=== PATIENT | male | born 2000 | race Two or more races ===

== ENCOUNTER 2024-07-24 10:10 | Emergency (ER) | payer OTHER ==
[~2024-07-24] VITALS: Ht 188 cm; Wt 72.6 kg
[2024-07-24] MEDS ORDERED: KETOROLAC TROMETHAMINE 30 MG VIAL IV ONE (11:15)
[2024-07-24] MEDS ORDERED: 0.9 % SODIUM CHLORIDE 1,000 ML IV SCH (11:15)
[2024-07-24] MEDS ORDERED: ONDANSETRON HCL 2 MG/ML VIAL IV ONE (11:15)
[2024-07-24] MEDS ORDERED: TAMSULOSIN HCL 0.4 MG CAP PO ONE ×2 (11:15→11:16)
[2024-07-24] MEDS ORDERED: KETOROLAC TROMETHAMINE 30 MG VIAL ONE (11:16)
[2024-07-24] MEDS ORDERED: ONDANSETRON HCL 2 MG/ML VIAL ONE (11:17)
[2024-07-24 11:50] LABS: BASO % 0.6 % (0.1-1.2); EOS # 0.18 (0.04-0.54); EOS % 2.7 % (0.7-7.0); HEMATOCRIT 40.2 % (40.1-51.0); LYMPH # 1.47 (1.18-3.74); LYMPH % 22.4 % (19.3-53.1); MEAN CORPUSCULAR HEMOGLOBIN 29.9 pg (25.6-32.2); MONO # 0.38 (0.24-0.82); MONO % 5.8 % (4.7-12.5); NEUT # 4.49 (1.56-6.13); NEUT % 68.3 % (34.0-71.1); PLATELET COUNT 221 K/uL (163-369); RED BLOOD COUNT 4.68 M/uL (4.63-6.08); RED CELL DISTRIBUTION WIDTH 11.9 % (11.6-14.4)
[2024-07-24 11:56] LABS: PH,URINE 5.5 (5.0-8.0); URINE APPEARANCE Cloudy; URINE BILIRRUBIN Negative (NEGATIVE); URINE BLOOD Large; URINE COLOR Yellow; URINE GLUCOSE Negative (NEGATIVE); URINE KETONE Negative (NEGATIVE); URINE LEUKOCYTE Negative; URINE NITRATE Negative; URINE PROTEIN 30 (NEGATIVE); URINE UROBILINOGEN 0.2 E.U./dl
[2024-07-24 11:57] LABS: URINE BACTERIA 12.2 uL (0.0-1933); URINE EPITHELIAL CELLS 3.6 uL (0.0-38.8); URINE RBC 634.4 uL (0.0-20.8); URINE WBC 9.4 uL (0.0-23.2)
[2024-07-24 12:03] LABS: URINE CAST 0.88 uL (0.0-1.40)
[2024-07-24 12:16] LABS: ALBUMIN 4.2 gm/dL (3.4-5.0); BILIRUBIN TOTAL 0.5 mg/dL (0.3-1.2); CALCIUM 9.2 mg/dL (8.5-10.1); CREATININE SERUM 1.1 mg/dL (0.70-1.30); GFR 82.24; POTASSIUM 3.98 mEq/L (3.5-5.1); TOTAL PROTEIN 8.2 gm/dL (6.4-8.2)
[2024-07-24] MEDS ORDERED: KETO10TA2 PO (13:04)
[2024-07-24] MEDS ORDERED: ONDANSETRON ODT8 MG PO (13:04)
[2024-07-24] MEDS ORDERED: CEPHALEXIN500 M1 PO (13:04)
[2024-07-24] MEDS ORDERED: TAMS0.4C PO (13:04)
== END 2024-07-24 13:13 | disposition home or self-care (01) ==
LOC: ER 10:23
PROVIDERS: General Practice
DX: N20.1 Calculus of ureter (principal); R10.9 Unspecified abdominal pain